=== PATIENT | male | born 1970 | race Caucasian/White ===

== ENCOUNTER 2018-06-03 09:07 | Inpatient (IN) | payer OTHER ==
[~2018-06-03] VITALS: Ht 182.9 cm; Wt 117.9 kg
--- NOTE | 2018-06-03 21:19 | NUR ---
Pre-Admission Note Pt is a 47 year old male seen at intake, A&Ox4. Pt appears anxiety and emotional, however Pt is cooperative and friendly and responds to questions appropriately. Upon assessment, pt states he is here for ETOH use and has been using benzodiazepines and opiates as well, although he reports he has not been abusing them. Pt also reports smoking cannabis. Vital signs taken, rules of the unit explained such as vital signs Q4H, wasting of controlled substances, kitchen access, and smoking patio privileges. Pt verbalized understanding. Will continue with admission process upon arrival on unit.
[2018-06-03 21:28] VITALS: BP 169/105
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
[2018-06-03] MEDS ORDERED: DICYCLOMINE HCL 20 MG TABLET PO PRN (21:45)
[2018-06-03] MEDS ORDERED: THIAMINE HCL 200 MG/2 ML VIAL IM ONE (21:45)
[2018-06-03] MEDS ORDERED: ONDANSETRON 4 MG/2 ML VIAL IM PRN (21:45)
[2018-06-03] MEDS ORDERED: MAGNESIUM HYDROXIDE 30 ML LIQUID UDC PO PRN (21:45)
[2018-06-03] MEDS ORDERED: LORAZEPAM 2 MG/1 ML VIAL IM PRN (21:45)
[2018-06-03] MEDS ORDERED: ONDANSETRON ODT 4 MG TAB.RAPDIS SL PRN (21:45)
[2018-06-03] MEDS ORDERED: MIRALAX 17 GM POWD.PACK PO PRN (21:45)
[2018-06-03] MEDS ORDERED: MAG HYDROX/AL HYDROX/SIMETH 30 ML LIQUID UDC PO PRN (21:45)
[2018-06-03] MEDS ORDERED: IBUPROFEN 400 MG TABLET PO PRN (21:45)
[2018-06-03] MEDS ORDERED: LORAZEPAM 1 MG TABLET PO PRN ×2 (21:45)
[2018-06-03] MEDS ORDERED: LISI40TA4 PO (21:59)
[2018-06-03] MEDS ORDERED: LOPE2TAB23 PO (21:59)
[2018-06-03] MEDS ORDERED: PRED20TA PO (21:59)
[2018-06-03] MEDS ORDERED: DULO60CA45 PO (21:59)
[2018-06-03] MEDS ORDERED: ROPI0.5T PO (21:59)
[2018-06-03] MEDS ORDERED: ARMO250T2 PO (21:59)
[2018-06-03] MEDS ORDERED: METF-495 PO (21:59)
[2018-06-03] MEDS ORDERED: FURO40TA5 PO (21:59)
[2018-06-03] MEDS ORDERED: CARV12.52 PO (21:59)
[2018-06-03] MEDS ORDERED: TRIA1CAP6 PO (21:59)
[2018-06-03] MEDS ORDERED: ARIP5TAB10 PO (21:59)
[2018-06-03] MEDS ORDERED: AMLO10TA2 PO (21:59)
[2018-06-03] MEDS ORDERED: OXCA300T4 PO (21:59)
[2018-06-03] MEDS ORDERED: ACET-2154 PO (21:59)
[2018-06-03 22:05] LABS: BASOPHILS # (AUTO) 0.1 K/uL (0.0-8.0); BASOPHILS % (AUTO) 0.9 % (0.0-2.0); EOSINOPHILS # (AUTO) 0.1 K/uL (0.0-0.7); EOSINOPHILS % (AUTO) 0.7 % (0.0-7.0); HEMATOCRIT 51.2 % (36.7-47.1); HEMOGLOBIN 17.2 g/dL (12.5-16.3); LYMPHOCYTES # (AUTO) 3.6 K/uL (20.0-40.0); LYMPHOCYTES % (AUTO) 28.1 % (20.5-51.5); MEAN CORPUSCULAR HEMOGLOBIN 30.6 uug (23.8-33.4); MEAN CORPUSCULAR HGB CONC 34 g/dL (32.5-36.3); MONOCYTES # (AUTO) 0.9 K/uL (2.0-10.0); MONOCYTES % (AUTO) 6.9 % (0.0-11.0); NEUTROPHILS # (AUTO) 8.2 K/uL (1.8-8.9); NEUTROPHILS % (AUTO) 63.4 % (38.5-71.5); PLATELET COUNT (AUTO) 225 K/uL (152-348); RED BLOOD CELL COUNT(AUTO) 5.62 MIL/uL (4.06-5.63); WHITE BLOOD COUNT (AUTO) 12.9 K/uL (3.6-10.2)
[2018-06-03] MEDS ORDERED: FLUT100B3 IH (22:18)
[2018-06-03] MEDS ORDERED: SILV50CR32 TP (22:18)
[2018-06-03 22:21] LABS: *AMPHETAMINE, URINE NEGATIVE (NEGATIVE); *BARBITURATE, URINE NEGATIVE (NEGATIVE); *CANNABINOID, URINE POSITIVE (NEGATIVE); *COCCAINE, URINE NEGATIVE (NEGATIVE); *OPIATE, URINE NEGATIVE (NEGATIVE); *PHENCYCLIDINE SCREEN,URINE NEGATIVE (NEGATIVE)
[2018-06-03 22:24] LABS: ETHANOL < 3 MG/DL (0-0)
[2018-06-03 22:29] LABS: ALANINE AMINOTRANSFERASE 22 U/L (16-63); ALKALINE PHOSPHATASE 70 U/L (50-136); AMYLASE 44 U/L (25-115); ASPARTATE AMINOTRANSFERASE 11 U/L (15-37); BILIRUBIN,TOTAL 0.7 mg/dL (0.2-1.0); CARBON DIOXIDE 28 mmol/L (21-32); CHLORIDE 102 mmol/L (98-107); CREATININE 1.3 mg/dL (0.6-1.3); LIPASE 211 U/L (73-393); MAGNESIUM 1.9 mg/dL (1.8-2.4); POTASSIUM 3.8 mmol/L (3.5-5.1); TOTAL PROTEIN, SERUM 7.1 g/dL (6.4-8.2); UREA NITROGEN, BLOOD 19 mg/dL (7-18)
[2018-06-03 22:31] LABS: GLUCOSE 308 mg/dL (74-106)
[2018-06-03] MEDS: CLONIDINE HCL 0.1 MG TABLET PO PRN (22:33)
--- NOTE | 2018-06-03 22:33 | NUR ---
PRN Clonidine Administration Pt presents with elevated BP 169/105. Clonidine 0.1mg PRN administered. Safety measures in place, will continue to monitor.
[2018-06-03 22:40] LABS: THYROID STIMULATING HORMONE 1.019 mIU/mL (0.358-3.740)
--- NOTE | 2018-06-03 22:50 | NUR ---
MD COMMUNICATION Pt's blood glucose is 308. Dr. Martínez made aware with order to give home medication of Metformin 1,000 mg and start routine Accu check.
--- NOTE | 2018-06-03 23:40 | NUR ---
PRN Clonidine Reassessment Elevated BP 1369/105 decreased to 142/97. Medication effective. Safety measures in place, will continue to monitor.
[2018-06-04] VITALS (7 sets, daily range): BP systolic 135–173; BP diastolic 76–99
[2018-06-04] MEDS ORDERED: METHOCARBAMOL 750 MG TABLET PO PRN (00:30)
[2018-06-04] MEDS ORDERED: ALBU8.5H8 IH (04:59)
[2018-06-04] MEDS ORDERED: CIME300T PO (04:59)
[2018-06-04] MEDS ORDERED: LIDO30CR TP (04:59)
--- NOTE | 2018-06-04 07:15 | NUR ---
End of Shift Pt is a 47 year old male admitted for ETOH withdrawal. Pt also reported using opiates, benzodiazepines and cannabis. Pt is placed on 5 day Ativan taper, to be started today. During shift, pt refused any Ativan offered to pt. Pt stated, I am okay for now, I dont want to take it too soon. CIWA 5 and COWS 5. Pt presented with s/s of anxiety, restlessness and elevated BP 169/106. Clonidine 0.1mg PRN administered, effective. Latest BP 137/87. Pt slept for 4 hours, intake of 200ml PO and voids x 2. Safety measures in place, endorsed onto day shift nurse.
--- NOTE | 2018-06-04 07:35 | NUR ---
BEGINNING OF SHIFT Patient endorsement report received from manager shift nurse, all pertinent information was discussed. Admitting Dx:etoh/BZO/Opiate withdrawal. Patient is scheduled to begin a 5 day Ativan taper this morning as ordered. was monitored closely during shift. Patient received PRN: Clonidine during shift due to elevated blood pressure, medication was effective as per manager shift. Patients blood sugar to be monitored closely during shift, per blood work patient with last BS: 308. Patient slept for 4 hours. Patient currently received awake, alert and oriented x4. Educated patient regarding plan of care for the day and medication regimen, will also educate regarding all discharge instructions. Safety measures are in place. call light with in reach, will continue to monitor. Addendum: 06/05/18 at 0803 by PARIS BALDERAS LVN strike out from note above " will also educate regarding all discharge instructions"
[2018-06-04] MEDS ORDERED: 5 DAY TAPER OF LORAZEPAM -SERENITY PROTOCOL PO PRN (07:45)
[2018-06-04] MEDS: BLOOD SUGAR DIAGNOSTIC 1 EACH STRIP VI SCH ×4 (08:26→20:57)
[2018-06-04] MEDS: THIAMINE HCL 100 MG TABLET PO SCH (08:27)
[2018-06-04] MEDS: FOLIC ACID 1 MG TABLET PO SCH (08:27)
[2018-06-04] MEDS: MULTIVITAMINS,THERAPEUTIC TABLET PO SCH (08:27)
[2018-06-04] MEDS: LORAZEPAM 1 MG TABLET PO SCH ×4 (08:28→20:46)
[2018-06-04] MEDS ORDERED: TUBERCULIN,PURIF.PROT.DERIV. 5 TU/0.1 ML TEST ID ONE (09:00)
--- NOTE | 2018-06-04 09:00 | NUR ---
CIWA/COW ASSESSMENT Patient awake and in bed, Patient noted with depressed affect and anxious mood, presented with the following s/sx of withdrawal: diaphoresis, increase anxiety, agitation, elevated HR, fidgety, restless, generalized discomfort, increase emotional amplitude and emotional volatility, patient with CIWA score of: 12, scheduled medications administered as ordered, will continue to monitor closely.
[2018-06-04] MEDS: METFORMIN HCL 500 MG TABLET PO SCH ×2 (09:14→17:10)
[2018-06-04] MEDS ORDERED: PROAIR IH SCH (11:45)
[2018-06-04] MEDS ORDERED: ACETAMINOPHEN 325 MG TABLET PO PRN (11:45)
[2018-06-04] MEDS: OXCARBAZEPINE 300 MG TABLET PO SCH ×2 (12:13→16:35)
[2018-06-04] MEDS: ARIPIPRAZOLE 5 MG TABLET PO SCH (12:14)
[2018-06-04] MEDS: CLONIDINE HCL 0.1 MG TABLET PO PRN (12:14)
[2018-06-04] MEDS: DULOXETINE 60 MG CAPSULE.DR PO SCH (12:14)
--- NOTE | 2018-06-04 12:14 | NUR ---
PRN CLONIDINE BP: 173/95 HR: 88, administered Clonidine 0.1mg PO as ordered for elevated blood pressure will monitor effectiveness.
[2018-06-04] MEDS: CARVEDILOL 12.5 MG TABLET PO SCH ×2 (12:26→16:36)
[2018-06-04] MEDS: AMLODIPINE 10 MG TABLET PO SCH (12:26)
--- NOTE | 2018-06-04 13:00 | NUR ---
COW/CIWA ASSESSMENT Patient presented with: diaphoresis, increase anxiety, agitation, elevated HR, fidgety, restless, generalized discomfort, chills, myalgia, arthriaglias, moist eyes, increase emotional amplitude and emotional volatility, patient with last CIWA score of: 12, and COW score of: 6
--- NOTE | 2018-06-04 13:14 | NUR ---
CLONIDINE REASSESSMENT Medication effective, decrease in BP: 135/76 HR: 88.
[2018-06-04] MEDS: TRELEGY ELLIPTA INH SCH (13:41)
[2018-06-04] MEDS: TRIAMTERENE HCTZ PO SCH (13:41)
[2018-06-04] MEDS: LISINOPRIL 40 MG PO SCH (13:42)
--- NOTE | 2018-06-04 16:25 | NUR ---
COW/CIWA ASSESSMENT Patient presented with: diaphoresis, increase anxiety, agitation, fidgety, restless, generalized discomfort, chills, myalgia, arthralgias, moist eyes, increase emotional amplitude and emotional volatility, patient with last CIWA score of: 12, and COW score of: 7
[2018-06-04] MEDS: LOPERAMIDE HCL 2 MG CAPSULE PO PRN (16:35)
--- NOTE | 2018-06-04 16:35 | NUR ---
PRN IMODIUM Patient reported one episode of diarrhea, Administered PRN: Imodium as ordered, encouraged patient to increase PO fluid intake as tolerated, will continue to monitor.
[2018-06-04] MEDS: ropiniROLE 0.5 MG TABLET PO SCH (17:11)
--- NOTE | 2018-06-04 17:35 | NUR ---
IMODIUM REASSESSMENT Medication effective, no further episodes of diarrhea have been noted, will continue to monitor.
[2018-06-04] MEDS ORDERED: METFORMIN HCL 500 MG TABLET PO SCH (18:00)
--- NOTE | 2018-06-04 19:04 | NUR ---
START OF SHIFT NOTE: This is report on patient, an 47 year old male, admitted on 06/03/2018 for Benzodiazepines, Alcohol, and Opioid withdrawal, continues ordered 5 day Subutex (today is day #2), and 5 day Valium tapers (today is day #2), which tolerated well. The patient remains compliant with treatment plan, medications, and diet regime. The patient is alert and oriented x4, with stable gait, soft clear speech. The patient reports NKA, is on Full Code, Diabetic Diet, is on Seizures and Fall Precautions. The patient reports Past Medical History: Anxiety, Depression, Narcolepsy, HTN, DM Type 2, COPD, CHF, 5150 - ECT Therapy, Back surgery in 1999, Necrotizing fasciitis in 2012. The patient denies seizures history. Throughout the day shift, patient presented with moderate withdrawal symptoms such as anxiety, agitation, depression, obv. irritability, nervousness, nausea, vomiting, diarrhea, nasal congestion, body aches, myalgia, sweating, restlessness, fatigue, and yawning. Last COWS=7, CIWA=12 at 1622. PRN Imodium administrated for diarrhea at 1635, PRN Clonidine 0.1 mg PO administrated for high BP at 1214, and were effective by day shift nurse report. Encouraged to attend group activities. Encouraged to intake fluids as tolerated. All needs met. Safety measures: Call light within reach, bed locked in lowest position, padded bed rails up x2. Endorsed by outgoing day shift nurse. Will continue to monitor closely.
--- NOTE | 2018-06-04 19:04 | NUR ---
END OF SHIFT Patient alert and oriented x4, continues under close observation, patient with admitting Dx: etoh/bzo/opiate withdrawal. Patient began a 5 day Ativan taper during shift, day 1 of taper began this morning. Monitored s/sx of withdrawal closely. During shift patient presented with the following s/sx of withdrawal: diaphoresis, increase anxiety, agitation, elevated HR, fidgety, restless, generalized discomfort, chills, myalgia, arthralgias, moist eyes, diarrhea, increase emotional amplitude and emotional volatility, patient with last CIWA score of: 12, and COW score of: 7. Patient easily agitated with angry outburst at times, requires frequent calming reassurance. Patient encouraged to express self, provided with non pharmacological interventions as needed. Blood sugar monitored closely during shift. Patient with last BS: 236, Continues on metformin as ordered. Educated regarding following diet restrictions with good verbal understanding. Received PPD to left F/A as ordered. Patient received PRN: Imodium during shift due to episode of diarrhea, medication effective. patient also received clonidine as ordered for elevated blood pressure, medication effective. Patient noted with depressed affect and anxious mood. Patient encouraged diversional activities to alleviate anxiety. Patient has a flat affect at times, noted preoccupied, encouraged to attend group therapies/sessions to learn new coping skills to prevent relapse. Denies SI/HI. Encouraged to socialize with others. Patient with inability to perform ADLs without prompting, Patient encouraged maintenance of personal space and self grooming. Patient endorsed to mine shifter nurse, all pertinent information was discussed.
--- NOTE | 2018-06-04 20:00 | NUR ---
COWS/CIWA ASSESSMENT COWS=9, CIWA=9 at 2000. The patient appears sad, worried, with depressive mood and anxious affect. Patient c/o anxiety, agitation, depression, Irritability, nervousness, nasal congestion, sweating, restlessness, and fatigue. Encouraged to intake fluids as tolerated. All needs met. Safety measures: Call light within reach, bed locked in lowest position, padded bed rails up x2. Will continue to monitor closely.
[2018-06-05] VITALS: BP 144/70
--- NOTE | 2018-06-05 | NUR ---
COWS/CIWA ASSESSMENT COWS=9, CIWA=8 at 0000. Patient presented with anxiety, agitation, depression, Irritability, nervousness,sweating, restlessness, and fatigue. Encouraged to intake fluids as tolerated. All needs met. Safety measures: Call light within reach, bed locked in lowest position, padded bed rails up x2. Will continue to monitor closely.
[2018-06-05 04:00] VITALS: BP 144/87
--- NOTE | 2018-06-05 04:00 | NUR ---
COWS/CIWA ASSESSMENT COWS=12, CIWA=10 at 2000. The patient appears sad, worried, with irritable mood and anxious affect. Patient c/o anxiety, agitation, depression, irritability, nervousness, body aches, abdominal cramps, sweating, restlessness, and fatigue. Encouraged to intake fluids as tolerated. All needs met. Safety measures: Call light within reach, bed locked in lowest position, padded bed rails up x2. Will continue to monitor closely.
[2018-06-05 04:10] LABS: HEPATITIS B SURFACE AG Negative (Negative)
--- NOTE | 2018-06-05 05:00 | NUR ---
PRN ADMINISTRATION PRN Ventolin Inh administrated at 0500 as ordered. The patient tolerated well. Safe and calm environment provided. All needs met. Safety measures: Call light within reach, bed locked in lowest position, padded bed rails up x2. Will continue to monitor closely.
[2018-06-05] MEDS: CLONIDINE HCL 0.1 MG TABLET PO PRN (05:02)
--- NOTE | 2018-06-05 05:03 | NUR ---
PRN CLONIDINE 0.1 MG PO ADMINISTRATION Patient c/o increased anxiety. PRN Clonidine 0.1 mg PO administrated at 0503 as ordered. The patient tolerated well. Safe and calm environment provided. All needs met. Safety measures: Call light within reach, bed locked in lowest position, padded bed rails up x2. Will continue to monitor closely.
[2018-06-05] MEDS: LOPERAMIDE HCL 2 MG CAPSULE PO PRN ×3 (05:45→20:33)
--- NOTE | 2018-06-05 05:45 | NUR ---
PRN ADMINISTRATION PRN IMODIUM 2 MG PO ADMINISTRATED FOR DIARRHEA X1. PATIENT TOLERATED WELL ENCOURAGED TO FLUID INTAKE TOLERATED. WILL CONTINUE TO MONITOR CLOSELY.
--- NOTE | 2018-06-05 05:45 | NUR ---
PRN IMODIUM 2 MG PO ADMINISTRATION Patient c/o diarrhea x1. PRN Imodium 2 mg PO administrated at 0545 as ordered. The patient tolerated well. Safe and calm environment provided. Encouraged to intake fluids as tolerated. All needs met. Safety measures: Call light within reach, bed locked in lowest position, padded bed rails up x2. Will continue to monitor closely.
--- NOTE | 2018-06-05 06:00 | NUR ---
PRN RE-ASSESSMENT Respirations are even and unlabored. Patient denies SOB and chest pain. PRN Ventolin Inh administrated at 0500 was effective. Safe and calm environment provided. All needs met. Safety measures: Call light within reach, bed locked in lowest position, padded bed rails up x2. Will continue to monitor closely.
--- NOTE | 2018-06-05 06:03 | NUR ---
PRN CLONIDINE PO RE-ASSESSMENT PRN Vistaril 50 mg PO administrated at 0503 was effective. Patient reports, "my anxiety decreased now". Safe and calm environment provided. All needs met. Safety measures: Call light within reach, bed locked in lowest position, padded bed rails up x2. Will continue to monitor closely.
--- NOTE | 2018-06-05 06:45 | NUR ---
PRN RE-ASSESSMENT PRN IMODIUM 2 MG PO ADMINISTRATED AT 0545 FOR DIARRHEA X1 WAS EFFECTIVE. NO MORE EPISODES OF DIARRHEA NOTED.
[2018-06-05] MEDS: BLOOD SUGAR DIAGNOSTIC 1 EACH STRIP VI SCH ×4 (07:39→20:29)
--- NOTE | 2018-06-05 07:39 | NUR ---
END OF SHIFT NOTE: Endorsed patient, 47 year old male, admitted for Benzodiazepines, Alcohol, and Opioid withdrawal, continues ordered 5 day Subutex (today is day #3), and 5 day Valium tapers (today is day #3), which tolerated well. The patient is alert and oriented x4, with stable gait, soft clear speech. The patient denies seizures history. Throughout the day shift, patient presented with moderate withdrawal symptoms such as anxiety, agitation, depression, obv. irritability, nervousness, diarrhea, nasal congestion, body aches, myalgia, sweating, restlessness, fatigue, and yawning. COWS=9, CIWA=9 at 2000. Last COWS=12 CIWA=10 at 0400. PRN Imodium administrated for diarrhea at 0545, PRN Clonidine 0.1 mg PO administrated for anxiety at 0503, and were effective. Encouraged to attend group activities. Encouraged to intake fluids as tolerated The patient remains compliant with treatment plan, medications, and diet regime. Patient slept for 6 hours, intake 400ml, output: voided x2, stool x1. All needs met. Safety measures: Call light within reach, bed locked in lowest position, padded bed rails up x2. Endorsed to incoming day shift nurse.
--- NOTE | 2018-06-05 08:04 | NUR ---
BEGINNING OF SHIFT Patient received awake, alert and oriented x4. Educated patient regarding plan of care for the day and medication regimen,Patient endorsement report received from mechanism inspector nurse, all pertinent information was discussed. Continues with ongoing 5 day Ativan taper as ordered, scheduled to begin day 2 of taper. Patient with last COW score of: 10, and CIWA score of: 12. Patient received PRN: Imodium, Clonidine, and Ventolin as ordered, medications were effective as per mechanism inspector. Patients blood sugar to be monitored closely during shift, BS this morning at 216. Patient slept for 6 hours. Safety measures are in place. call light with in reach, will continue to monitor.
[2018-06-05 08:17] VITALS: BP 146/92
[2018-06-05] MEDS: MULTIVITAMINS,THERAPEUTIC TABLET PO SCH (08:43)
[2018-06-05] MEDS: ARIPIPRAZOLE 5 MG TABLET PO SCH (08:43)
[2018-06-05] MEDS: AMLODIPINE 10 MG TABLET PO SCH (08:44)
[2018-06-05] MEDS: OXCARBAZEPINE 300 MG TABLET PO SCH ×2 (08:44→17:23)
[2018-06-05] MEDS: TRIAMTERENE HCTZ PO SCH (08:44)
[2018-06-05] MEDS: DULOXETINE 60 MG CAPSULE.DR PO SCH (08:44)
[2018-06-05] MEDS: THIAMINE HCL 100 MG TABLET PO SCH (08:44)
[2018-06-05] MEDS: CARVEDILOL 12.5 MG TABLET PO SCH ×2 (08:44→17:23)
[2018-06-05] MEDS: FOLIC ACID 1 MG TABLET PO SCH (08:44)
[2018-06-05] MEDS: LORAZEPAM 1 MG TABLET PO SCH ×3 (08:44→20:23)
[2018-06-05] MEDS: LISINOPRIL 40 MG PO SCH (08:45)
[2018-06-05] MEDS: TRELEGY ELLIPTA INH SCH (08:45)
[2018-06-05] MEDS: METFORMIN HCL 500 MG TABLET PO SCH ×2 (08:49→17:23)
--- NOTE | 2018-06-05 09:00 | NUR ---
CIWA/COW ASSESSMENT Patient awake and in room, Patient noted with depressed affect and anxious mood, patient easily agitated. Provided with calming reassurance as needed. Patient noted exhibiting the following s/sx of withdrawal: difficulty sitting still, fidgety, restless, bone and joint aches, diarrhea, fine tremors, irritable, increase anxiety, agitation, generalized discomfort, increase emotional amplitude and emotional volatility, patient with CIWA score of: 11, and cow score of: 10, Continues with ongoing 5 day ativan taper as ordered, will continue to monitor closely.
--- NOTE | 2018-06-05 11:05 | NUR ---
PRN IMODIUM Patient reported one episode of diarrhea, Administered PRN: Imodium as ordered, encouraged patient to increase PO fluid intake as tolerated, will continue to monitor.
--- NOTE | 2018-06-05 12:05 | NUR ---
IMODIUM REASSESSMENT Medication effective, no further episodes of diarrhea have been noted, will continue to monitor.
--- NOTE | 2018-06-05 13:00 | NUR ---
CIWA/COW ASSESSMENT Continues to exhibit the following s/sx of withdrawal: difficulty sitting still, fidgety, restless, bone and joint aches, diarrhea, fine tremors, irritable, increase anxiety, agitation, generalized discomfort, increase emotional amplitude and emotional volatility, patient with CIWA score of: 11, and cow score of: 10, will continue to monitor closely.
--- NOTE | 2018-06-05 13:00 | NUR ---
MD COMMUNICATION Per , Dr. Saucedo, Imodium frequency changed to Q2HPRN for diarrhea, will monitor closely for further episodes of diarrhea. Encouraged patient to increase PO fluid intake as tolerated. Will continue to monitor.
[2018-06-05 13:24] VITALS: BP 134/76
--- NOTE | 2018-06-05 15:25 | NUR ---
Therapist prompted client to attend group therapy today.
[2018-06-05 16:54] VITALS: BP 132/84
--- NOTE | 2018-06-05 17:08 | NUR ---
CIWA/COW ASSESSMENT Present with the following s/sx: difficulty sitting still, fidgety, restless, bone and joint aches, diarrhea, fine tremors, irritable, increase anxiety, agitation, generalized discomfort, increase emotional amplitude and emotional volatility, patient with CIWA score of: 11, and cow score of: 10, will continue to monitor closely. continues on Ativan taper as ordered.
[2018-06-05] MEDS: ropiniROLE 0.5 MG TABLET PO SCH (17:23)
--- NOTE | 2018-06-05 18:36 | NUR ---
END OF SHIFT Admitting Dx: etoh/bzo/opiate withdrawal. Continues with ongoing 5 day Ativan taper as ordered, patient currently on day 2 of taper. Patient easily agitated with angry outburst at times, requires frequent calming reassurance. Patient noted with depressed affect and anxious mood. Patient encouraged diversional activities to alleviate anxiety. Encouraged to attend group therapies/sessions to learn new coping skills to prevent relapse. Denies SI/HI. Encouraged to socialize with others. Patient disheveled, unkempt, and odorous, Patient with inability to perform ADLs without prompting, Patient encouraged maintenance of personal space and self grooming. Continues under close observation, Patient noted exhibiting the following s/sx of withdrawal: difficulty sitting still, fidgety, restless, bone and joint aches, diarrhea, fine tremors, irritable, increase anxiety, agitation, generalized discomfort, increase emotional amplitude and emotional volatility, patient with CIWA score of: 11, and cow score of: 10. Patient received PRN Imodium as ordered due to episode of diarrhea, medication effective. Blood sugar monitored closely during shift. Patient with last BS: 239. Continues on metformin as ordered. Educated regarding following diet restrictions with good verbal understanding. Patient endorsed to night shift manager nurse, all pertinent information was discussed.
--- NOTE | 2018-06-05 18:50 | NUR ---
START OF SHIFT NOTE: Endorsed patient, an 47 year old male, continues 5 day Subutex (today is day #3), and 5 day Valium tapers (today is day #3) ordered for Benzodiazepines, Alcohol, and Opioid withdrawal, tolerated well. Upon endorsement, patient is alert and oriented x4, with stable gait, soft clear speech. Mood anxious, irritable affect. The most recent COWS=10, CIWA=11 at 1655. During the day shift, patient experienced following withdrawal symptoms such as anxiety, agitation, depression, irritability, nervousness, diarrhea, nasal congestion, body aches, myalgia, sweating, restlessness, fatigue, and yawning. PRN Imodium administrated for diarrhea at 1205, and was effective per day shift nurse report. The patient remains compliant with treatment plan, medications, and diet regime. Encouraged to attend group activities. Encouraged to intake fluids as tolerated. All needs met. Safety measures: Call light within reach, bed locked in lowest position, padded bed rails up x2. Endorsed by outgoing day shift nurse. Will continue to monitor closely.
[2018-06-05 20:00] VITALS: BP 106/58
--- NOTE | 2018-06-05 20:00 | NUR ---
COWS/CIWA ASSESSMENT COWS=12, CIWA=12 at 2000. The patient appears sad, worried, with anxious mood and labile affect. Patient experienced anxiety, agitation, Irritability, nervousness, sweating, tremors, stomach cramps, restlessness, fatigue, and yawning. Ativan PO will be administrated as ordered. Encouraged to intake fluids as tolerated. All needs met. Safety measures: Call light within reach, bed locked in lowest position, padded bed rails up x2. Will continue to monitor closely.
--- NOTE | 2018-06-05 20:33 | NUR ---
PRN IMODIUM 2 MG PO ADMINISTRATION Patient c/o diarrhea x1. PRN Imodium 2 mg PO administrated at 2032 as ordered. The patient tolerated well. Safe and calm environment provided. Encouraged to intake fluids as tolerated. All needs met. Safety measures: Call light within reach, bed locked in lowest position, padded bed rails up x2. Will continue to monitor closely.
--- NOTE | 2018-06-05 21:33 | NUR ---
PRN RE-ASSESSMENT PRN Imodium 2 mg PO administrated at 2032 for diarrhea was effective. No more episodes of diarrhea noted. Safe and calm environment provided. Encouraged to intake fluids as tolerated. All needs met. Safety measures: Call light within reach, bed locked in lowest position, padded bed rails up x2. Will continue to monitor closely.
[2018-06-05] MEDS: diphenhydrAMINE 50 MG CAPSULE PO PRN (22:31)
--- NOTE | 2018-06-05 22:31 | NUR ---
PRN BENADRYL 50 MG PO ADMINISTRATION The patient c/o insomnia. PRN Benadryl 50 mg PO administrated for insomnia at 2231,as ordered. The patient tolerated well. Encouraged to intake fluids as tolerated. Safe and calm environment provided. Encouraged to intake fluids as tolerated. All needs met. Safety measures: Call light within reach, bed locked in lowest position, padded bed rails up x2. Will continue to monitor closely.
--- NOTE | 2018-06-05 23:30 | NUR ---
PRN BENADRYL PO RE-ASSESSMENT The patient sleeping. Respirations are even and unlabored. RR:15. PRN Benadryl 50 mg PO administrated for insomnia at 2231, as ordered, was effective. All needs met. Safety measures: Call light within reach, bed locked in lowest position, padded bed rails up x2. Endorsed by outgoing day shift nurse. Will continue to monitor closely.
[2018-06-06] VITALS: BP 147/74
[2018-06-06 04:00] VITALS: BP 109/79
--- NOTE | 2018-06-06 04:00 | NUR ---
COWS/CIWA ASSESSMENT COWS=11, CIWA=12 at 0400. Patient presented with following withdrawal symptoms such as anxiety, agitation, irritability, nervousness, sweating, tremors, flashed face, restlessness, fatigue, and yawning. Safe and calm environment provided. Encouraged to intake fluids as tolerated. All needs met. Safety measures: Call light within reach, bed locked in lowest position, padded bed rails up x2. Will continue to monitor closely.
--- NOTE | 2018-06-06 07:05 | NUR ---
Start of Shift Note Pt. is a 47 y/o male admitted for the medically managed withdrawal from ETOH (beer/whiskey) and Benzodiazepines(Xanax). Pt. was also using Percocet for back pain currently with ETOH and Benzodiazepines. Pt. was placed on a 5 day Ativan taper to manage his withdrawal symptoms. Endorse from previous shift pt. presented with anxiety, irritability, depression, agitation, congestion, diarrhea, diaphoresis, and fatigue. Last CIWA of 11 and COW's of 10. Pt. was given PRN imodium given for withdrawal symptoms. Received pt. in room. Pt. standing up in room getting ready to out for a smoke. Pt. stated " I'm a little anxious, but otherwise okay." Pt. presents with dark rings around his eyes, and gross tremors. Pt. educated on treatment plan and medication regiment. Pt. verbalize understanding. Safety measures in place. Will continue to monitor pt.'s behavior for safety.
--- NOTE | 2018-06-06 07:14 | NUR ---
END OF SHIFT NOTE: Presented patient, an 47 year old male admitted for Benzodiazepines, Alcohol, and Opioid withdrawal. The patient continues ordered 5 day Subutex (today is day #4), and 5 day Valium tapers (today is day #4) which tolerated well. He is alert and oriented x4, with stable gait, soft clear speech, anxious mood, and labile affect. Initial COWS=12, CIWA=12 at 2000, COWS=11, CIWA=11 at 0000. Last COWS=11, CIWA=12 at 0400. Throughout the mini shifter patient c/o anxiety, agitation, depression, irritability, nervousness, diarrhea, stomach cramps, nasal congestion, flashed face, body aches, myalgia, sweating, restlessness, fine tremors, fatigue, and yawning. PRN Imodium administrated for diarrhea at 2032, PRN Benadryl 50 mg PO administrated for insomnia at 2230, and were effective. RK=[id number] at 2099. The patient remains compliant with treatment plan, medications, and diet regime. Encouraged to attend group activities. Encouraged to intake fluids as tolerated. The patient remains compliant with treatment plan, medications, and diet regime. Patient slept 5 hours, Intake 1,000 ml, void x 2. All needs met. Safety measures: Call light within reach, bed locked in lowest position, padded bed rails up x2. Endorsed to day shift nurse.
[2018-06-06 08:00] VITALS: BP 145/94
--- NOTE | 2018-06-06 08:00 | NUR ---
COW's and CIWA Assessment COW's 8 and CIWA 13. Pt. laying in bed and presents with agitation, anxiety, diaphoresis, gross tremors, and nasal congestion. Will administer medication regiment as ordered. Will continue to monitor pt.'s behavior for safety.
[2018-06-06] MEDS: BLOOD SUGAR DIAGNOSTIC 1 EACH STRIP VI SCH ×4 (08:12→21:13)
[2018-06-06] MEDS: ARIPIPRAZOLE 5 MG TABLET PO SCH (08:13)
[2018-06-06] MEDS: AMLODIPINE 10 MG TABLET PO SCH (08:13)
[2018-06-06] MEDS: METFORMIN HCL 500 MG TABLET PO SCH ×2 (08:13→17:01)
[2018-06-06] MEDS: TRIAMTERENE HCTZ PO SCH (08:13)
[2018-06-06] MEDS: LISINOPRIL 40 MG PO SCH (08:13)
[2018-06-06] MEDS: MULTIVITAMINS,THERAPEUTIC TABLET PO SCH (08:14)
[2018-06-06] MEDS: FOLIC ACID 1 MG TABLET PO SCH (08:14)
[2018-06-06] MEDS: THIAMINE HCL 100 MG TABLET PO SCH (08:14)
[2018-06-06] MEDS: LORAZEPAM 1 MG TABLET PO SCH ×4 (08:14→21:12)
[2018-06-06] MEDS: DULOXETINE 60 MG CAPSULE.DR PO SCH (08:14)
[2018-06-06] MEDS: CARVEDILOL 12.5 MG TABLET PO SCH ×2 (08:14→17:02)
[2018-06-06] MEDS: OXCARBAZEPINE 300 MG TABLET PO SCH ×2 (08:14→17:02)
[2018-06-06] MEDS: TRELEGY ELLIPTA INH SCH (08:17)
[2018-06-06 12:00] VITALS: BP 146/86
--- NOTE | 2018-06-06 12:00 | NUR ---
COW's and CIWA Assessment COW's 8 and CIWA 13. Pt. laying in bed and presents with agitation, anxiety, diaphoresis, gross tremors, and nasal congestion. Pt. compliant with medication regiment. Will continue to monitor pt.'s behavior for safety.
[2018-06-06] MEDS: LOPERAMIDE HCL 2 MG CAPSULE PO PRN (13:26)
--- NOTE | 2018-06-06 13:26 | NUR ---
PRN Medication. Pt. in room and reports 3 episodes of diarrhea. PRN Imodium given at this time. Will continue to monitor pt.'s behavior for medication effectiveness and safety.
--- NOTE | 2018-06-06 14:00 | NUR ---
PRN Re-Assessment Pt. states "I feel better, no more diarrhea so far." Medication effective. Will continue to monitor pt.'s behavior for safety .
[2018-06-06 16:00] VITALS: BP 143/93
--- NOTE | 2018-06-06 16:00 | NUR ---
COW's and CIWA Assessment COW's 10 and CIWA 13. Pt. laying in bed and presents with agitation, anxiety, diaphoresis, gross tremors, diarrhea and nasal congestion. Pt. compliant with treatment plan and medication regiment. Will continue to monitor pt.'s behavior for safety.
[2018-06-06] MEDS: glipiZIDE 5 MG TABLET PO SCH (17:01)
[2018-06-06] MEDS: ropiniROLE 0.5 MG TABLET PO SCH (17:02)
--- NOTE | 2018-06-06 19:14 | NUR ---
End of Shift Note Pt. is a 47 y/o male admitted for the medically managed withdrawal from ETOH (beer/whiskey) and Benzodiazepines(Xanax). Pt. was also using Percocet for back pain currently with ETOH and Benzodiazepines. Pt. was placed on a 5 day Ativan taper to manage his withdrawal symptoms. Pt. presented throughout shift with anxiety, irritability, depression, agitation, congestion, diarrhea, diaphoresis, and fatigue. Last CIWA of 10 and COW's of 13. Pt. was given PRN imodium given for withdrawal symptoms. Pt. compliant with medication regiment and treatment plan. Safety measures in place. Will endorse pt.'s care to oncoming shift.
--- NOTE | 2018-06-06 19:20 | NUR ---
START OF SHIFT Patient is a 48-year-old male admitted on 06/03/18 for ETOH withdrawal, with concurrent daily use of Percocet 10/325mg daily for the past 10 months. Patient is currently on a 5-day Ativan taper, tolerating well; today is day 3 of the taper. Patients last CIWA was 13 per endorsement. Patient received PRN Imodium today for complaints of loose stool. PRN was noted to be effective. Upon assessment, patient is alert and oriented x4, observed in his room watching television, not participating in group. Patient appears withdrawn and isolative with a pleasant demeanor. Per charge nurse, patient refuses insulin and has not been ordered a sliding scale although routine Accu-checks are ordered. Patient is on fall and seizure precautions, denies seizure history. Safety measures in place, side rails up x2, bed locked in low position, call light within reach. Will continue to monitor.
[2018-06-06 20:00] VITALS: BP 141/92
--- NOTE | 2018-06-06 20:00 | NUR ---
CIWA 13 Patient reports anxiety and is moderately agitated. Patient complains of moderate tingling in his right hand, stating that it is constant. Current CIWA is 13. Will continue to monitor and administer medications as ordered.
[2018-06-06] MEDS: diphenhydrAMINE 50 MG CAPSULE PO PRN (21:12)
--- NOTE | 2018-06-06 21:12 | NUR ---
PRN BENADRYL, BS 186 mg/dL Patient reports difficulty sleeping and requested sleep aid. PRN Benadryl 50mg given PO. Accu-check at 2111 results: 186 mg/dL. Safety measures in place, side rails up x2, bed locked in low position, call light within reach. Will monitor for effectiveness.
--- NOTE | 2018-06-06 22:12 | NUR ---
PRN BENADRYL REASSESSMENT Patient observed sleeping in bed, eyes closed, breathing unlabored and even. PRN Benadryl noted to be effective. Safety measures in place, side rails up x2, bed locked in low position, call light within reach. Will continue to monitor.
[2018-06-06] MEDS ORDERED: TRAZODONE 50 MG TABLET PO ONE (23:15)
--- NOTE | 2018-06-06 23:38 | NUR ---
ONE-TIME TRAZODONE 50mg Patient woke up about half an hour ago and stated that he was having difficulty falling asleep despite PRN Benadryl. Patient states, "I've had trouble sleeping since 1999. Tonight I just feel like a snake shedding his skin." One-time Trazodone 50mg given PO. Safety measures in place, side rails up x2, bed locked in low position, call light within reach. Will monitor for effectiveness.
[2018-06-07] VITALS (7 sets, daily range): BP systolic 103–160; BP diastolic 59–97
--- NOTE | 2018-06-07 | NUR ---
CIWA DEFERRED CIWA deferred at this time due to patient sleeping; to be assessed and scored while patient is awake. Respirations even and unlabored, 20/min, BP 103/59, HR 72. Safety measures in place, side rails up x2, bed locked in low position, call light within reach. Will continue to monitor.
--- NOTE | 2018-06-07 00:38 | NUR ---
ONE-TIME TRAZODONE 50mg REASSESSMENT Patient was sleeping prior to reassessment, for about half an hour, but is now awake stating, "nothing is working, I still can't sleep." Trazodone seems to ineffective at this time. Safety measures in place, side rails up x2, bed locked in low position, call light within reach. Will continue to monitor.
--- NOTE | 2018-06-07 00:45 | NUR ---
CIWA 13 Patient woke up and stated that he could not fall back asleep and decided to take a shower. Patient continues to express feeling anxious and feeling restless. Current CIWA is 13. SN unlocked shower for patient. Will continue to monitor.
--- NOTE | 2018-06-07 04:00 | NUR ---
CIWA DEFERRED CIWA deferred at this time due to patient sleeping; to be assessed while patient is awake. Patient's respirations are even and unlabored, BP 106/76, HR is 67. Safety measures in place, side rails up x2, bed locked in low position, call light within reach. Will continue to monitor.
--- NOTE | 2018-06-07 06:30 | NUR ---
CIWA 13 Patient is awake, requesting coffee and permission to go down to smoke. Patient continues to report moderate levels of anxiety and restlessness. Current CIWA is 13. Safety measures in place, call light within reach. Will continue to monitor.
[2018-06-07] MEDS: LOPERAMIDE HCL 2 MG CAPSULE PO PRN (07:12)
--- NOTE | 2018-06-07 07:12 | NUR ---
PRN IMODIUM Patient reports one episode of loose stool. PRN Imodium 4mg given PO. Safety measures in place, call light within reach. Will endorse to day shift for reassessment in one hour.
--- NOTE | 2018-06-07 07:25 | NUR ---
END OF SHIFT Patient is a 48-year-old male admitted on 06/03/18 for ETOH withdrawal. Patient is currently on a 5-day Ativan taper, tolerating well; today will be day 4 of the taper. Patients last CIWA was 13 this morning at 0630. Patient received PRN Benadryl which was noted to be ineffective. Patient also received a One-Time Trazodone 50mg which was not effective at time of reassessment, however, patient was able to sleep for 6 hours. PRN Imodium was given at 0712, a few minutes after patient reported one episode of loose stool; to be reassessed by day shift. Total intake of 1,350mL, void x3, stool x1. Patient is on fall and seizure precautions, denies seizure history. Safety measures in place, side rails up x2, bed locked in low position, call light within reach. Will endorse to day shift.
[2018-06-07] MEDS: BLOOD SUGAR DIAGNOSTIC 1 EACH STRIP VI SCH ×4 (07:35→20:21)
[2018-06-07] MEDS: ACETAMINOPHEN 325 MG TABLET PO PRN (07:35)
--- NOTE | 2018-06-07 07:36 | NUR ---
START OF SHIFT & PRN Tylenol 650mg, Motrin 600mg. Endorse rcvd from ongoing nurse, client in the room, he is a/o x 4, client presents with depressed mood, flat affect, flushed face skin, clammy skin, and difficulty concentrating. Client reports nausea, diarrhea, stomach cramps, anxiety, agitation, fatigue, and lower back pain 5/10, PRN Tylenol 650mg PO and Motrin 600mg PO administered. PRN Benadryl 50mg PO and Trazodone 50mg PO for inability to sleep, client slept 6 hrs. Seizure precautions in place. Encourage client to attend group therapy to learn skills to maintain sober. Call light within reach.
[2018-06-07] MEDS: glipiZIDE 5 MG TABLET PO SCH ×2 (07:44→16:36)
--- NOTE | 2018-06-07 08:12 | NUR ---
Reassess PRN Imodium 4mg, client reports no episodes of loose stool.
--- NOTE | 2018-06-07 08:27 | NUR ---
Zero induration noted on L forearm PPD site.
[2018-06-07] MEDS: TRELEGY ELLIPTA INH SCH (08:36)
[2018-06-07] MEDS: TRIAMTERENE HCTZ PO SCH (08:36)
[2018-06-07] MEDS: METFORMIN HCL 500 MG TABLET PO SCH ×2 (08:36→18:29)
[2018-06-07] MEDS: THIAMINE HCL 100 MG TABLET PO SCH (08:37)
[2018-06-07] MEDS: OXCARBAZEPINE 300 MG TABLET PO SCH ×2 (08:37→16:36)
[2018-06-07] MEDS: LISINOPRIL 40 MG PO SCH (08:37)
[2018-06-07] MEDS: AMLODIPINE 10 MG TABLET PO SCH (08:37)
[2018-06-07] MEDS: CARVEDILOL 12.5 MG TABLET PO SCH ×2 (08:37→16:36)
[2018-06-07] MEDS: LORAZEPAM 1 MG TABLET PO SCH ×3 (08:37→20:17)
[2018-06-07] MEDS: ARIPIPRAZOLE 5 MG TABLET PO SCH (08:37)
--- NOTE | 2018-06-07 08:37 | NUR ---
CIWA 14 Client presents with anxiety, agitation, tremors, flushed face, clammy skin, and difficulty concentrating. Client reports nausea, stomach cramps, sweats, headache, feeling tired, unable to sleep well, cause he sleeps mostly during the day, since we are not giving him his Nuvigil for narcolepsy, he also inquire about his lidocaine gel for chronic pain on R leg. (CN made aware of medications requested). Ativan 1mg PO administered. Encourage client to attend group therapy to learn skills to maintain sober. Call light within reach.
[2018-06-07] MEDS: FOLIC ACID 1 MG TABLET PO SCH (08:38)
[2018-06-07] MEDS: MULTIVITAMINS,THERAPEUTIC TABLET PO SCH (08:38)
[2018-06-07] MEDS: DULOXETINE 60 MG CAPSULE.DR PO SCH (08:38)
--- NOTE | 2018-06-07 12:03 | NUR ---
Nursing Note Client blood sugar 271, client does not have an order for insulin sliding scale. Client stated, "I do not want to take any more medications that what I'm taking right now." Client is on oral anti-diabetic medication: Glucotrol 5mg PO BID and Metformin 100mg BIDM PO. Educated client of the risk of health problems, eye complications, neuropathy. Client requested a nutrition counseling. CN notified.
[2018-06-07] MEDS: HYDROXYZINE PAMOATE 25 MG CAPSULE PO PRN (12:43)
[2018-06-07] MEDS: CLONIDINE HCL 0.1 MG TABLET PO PRN ×2 (12:44→20:17)
--- NOTE | 2018-06-07 12:44 | NUR ---
CIWA 14 Client presents with anxiety, agitation, m/b increase P 90, BP 160/97, tremors, flushed face, clammy skin, and difficulty concentrating. Client inquire about his lidocaine gel for chronic pain on R leg. He reports R leg pain 5/10. Encourage support according to plan of care. PRN Clonidine 0.1mg PO and Vistaril 50mg PO administered. Call light within reach.
[2018-06-07] MEDS ORDERED: LIDOCAINE/PRILOCAINE 5 GM CREAM.GM. TP PRN (13:00)
--- NOTE | 2018-06-07 13:44 | NUR ---
Reassess PRN Clonidine 0.1mg, P 70, BP 104/70 and Vistaril 50mg, client reports feeling less anxious. Call light within reach.
--- NOTE | 2018-06-07 15:30 | NUR ---
CIWA 14 Client continues to present with tremors, increased anxiety, agitation, intermittent perspiration, myalgia, nausea, malaise, fatigue, and difficulty concentrating. Schedules Ativan 1mg PO administered. Client is planning to attend group therapy. Call light within reach.
--- NOTE | 2018-06-07 16:37 | NUR ---
Nursing Note Client blood sugar 248, Glucotrol 5mg PO administered. CN notified.
--- NOTE | 2018-06-07 16:42 | NUR ---
Client was prompted to attend twice daily group therapy sessions.
[2018-06-07] MEDS: PRILOCAINE TOP PRN (17:52)
[2018-06-07] MEDS: LIDOCAINE TOP PRN (17:52)
--- NOTE | 2018-06-07 17:52 | NUR ---
PRN Lidocaine 2.5%/Prilocare 2.5% cream TOP to L ankle for pain 5/10.
[2018-06-07] MEDS: ropiniROLE 0.5 MG TABLET PO SCH (18:29)
--- NOTE | 2018-06-07 18:52 | NUR ---
Reassess PRN Lidocaine 2.5%/Prilocare 2.5%, client reports slight relief from L ankle for pain 2/10, but tolerable.
--- NOTE | 2018-06-07 19:04 | NUR ---
END OF SHIFT Endorse client to incoming nurse, client is in group therapy, a/o x 4. Client monitored closely during shift, continues on Ativan taper as ordered. During shift client presented with nausea, anxiety, agitation, stomach cramps, difficulty concentrating, avoidant gaze, flushed face and fatigue. Last Blood glucose 248, client is on anti-diabetic medication Glucotrol 5mg PO BID and Metformin 100mg BIDM PO. Last CIWA 14 @ 1600. Adequate PO fluid intake 2400mL, void x 5, stool x 3. Consumes 50-75% of meals. Call light within reach.
--- NOTE | 2018-06-07 19:04 | NUR ---
START OF SHIFT NOTE: This is report on patient, an 48 year old male, admitted for Benzodiazepines, Alcohol, and Opioid withdrawal, continues ordered Ativan taper, which tolerated well. The patient is alert and oriented x4, with stable gait, soft clear speech, anxious mood, labile affect. Last CIWA=14 at 1530. The patient presented with moderate withdrawal symptoms such as anxiety, agitation, depression, irritability, nervousness, nausea, nasal congestion, body aches, myalgia, sweating, restlessness, fatigue, and yawning. PRN Tylenol 650 mg PO administrated for generalized body aches at 0735, PRN Motrin 400 mg PO administrated for pain at 0736, PRN Vistaril 50 mg PO administrated for anxiety at 1243, PRN Clonidine 0.1 mg PO administrated for high BP at 1244, and were effective by day shift nurse report. The patient remains compliant with treatment plan, medications, and diet regime. Encouraged to attend group activities. Encouraged to intake fluids as tolerated. All needs met. Safety measures: Call light within reach, bed locked in lowest position, padded bed rails up x2. Endorsed by outgoing day shift nurse. Will continue to monitor closely.
--- NOTE | 2018-06-07 20:00 | NUR ---
CIWA ASSESSMENT CIWA=12 at 2000. The patient appears sad, worried, with irritable mood and anxious affect. Patient experienced following withdrawal symptoms such as anxiety, agitation, Irritability, nervousness, sweating, tremors, stomach cramps, restlessness, fatigue, and yawning. Ativan PO will be administrated as ordered. Encouraged to intake fluids as tolerated. All needs met. Safety measures: Call light within reach, bed locked in lowest position, padded bed rails up x2. Will continue to monitor closely.
--- NOTE | 2018-06-07 20:17 | NUR ---
PRN CLONIDINE 0.1 MG PO ADMINISTRATION PRN Clonidine 0.1 mg PO administrated for BP= 156/95 at 2017, as ordered. The patient tolerated well. Encouraged to intake fluids as tolerated. Safe and calm environment provided. Encouraged to intake fluids as tolerated. All needs met. Safety measures: Call light within reach, bed locked in lowest position, padded bed rails up x2. Will continue to monitor closely.
--- NOTE | 2018-06-07 20:21 | NUR ---
ACCU-CHEK Patient's blood sugar 225 this pm via accucheck. Patient asymptomatic. Patient refused insulin. MD aware. Safe and calm environment provided. Encouraged to intake fluids as tolerated. All needs met. Safety measures: Call light within reach, bed locked in lowest position, padded bed rails up x2. Will continue to monitor closely.
--- NOTE | 2018-06-07 21:17 | NUR ---
PRN CLONIDINE 0.1 MG PO RE-ASSESSMENT UH=587/66, HR=70. PRN Clonidine 0.1 mg PO administrated for BP= 156/95 at 2017 was effective. Encouraged to intake fluids as tolerated. Safe and calm environment provided. Encouraged to intake fluids as tolerated. All needs met. Safety measures: Call light within reach, bed locked in lowest position, padded bed rails up x2. Will continue to monitor closely.
[2018-06-08] VITALS: BP 140/79
--- NOTE | 2018-06-08 | NUR ---
CIWA DEFERRED CIWA deferred r/t patient sleeping. Will be to assess while patient is awake. Safe and calm environment provided. All needs met. Safety measures: Call light within reach, bed locked in lowest position, padded bed rails up x2. Will continue to monitor closely.
[2018-06-08 04:00] VITALS: BP 135/82
--- NOTE | 2018-06-08 04:00 | NUR ---
CIWA ASSESSMENT CIWA=11 at 0400. The patient appears worried, with anxious mood and flat affect. Patient presented with anxiety, agitation, Irritability, nervousness, sweating, tremors, restlessness, fatigue, and yawning. Encouraged to intake fluids as tolerated. Safe and calm environment provided. All needs met. Safety measures: Call light within reach, bed locked in lowest position, padded bed rails up x2. Will continue to monitor closely.
--- NOTE | 2018-06-08 07:30 | NUR ---
END OF SHIFT NOTE: Endorsed patient, an 48 year old male, continues ordered Ativan taper for Benzodiazepines, Alcohol, and Opioid withdrawal, which tolerated well. The patient is alert and oriented x4, with stable gait, soft clear speech, anxious mood, flat affect. Last CIWA=12 at 1999, CIWA=11 at 0400: Patient presented with anxiety, agitation, Irritability, nervousness, sweating, tremors, restlessness, fatigue, and yawning. PRN Clonidine 0.1 mg PO administrated for BP= 156/95 at 2017 was effective. Patient's blood sugar 225 this pm via accucheck. Patient asymptomatic. Patient refused insulin. MD aware. The patient remains compliant with treatment plan, medications, and diet regime Patient slept for 7 hours, intake 855 ml, output: voided x2. Safe and calm environment provided. Encouraged to intake fluids as tolerated. All needs met. Safety measures: Call light within reach, bed locked in lowest position, padded bed rails up x2. Endorsed to day shift nurse.
[2018-06-08] MEDS: METFORMIN HCL 500 MG TABLET PO SCH ×2 (07:45→17:26)
[2018-06-08] MEDS: glipiZIDE 5 MG TABLET PO SCH ×2 (07:45→17:27)
[2018-06-08] MEDS: BLOOD SUGAR DIAGNOSTIC 1 EACH STRIP VI SCH ×4 (07:48→20:57)
--- NOTE | 2018-06-08 07:50 | NUR ---
START OF SHIFT Pt is a 47 yr old male, AA&Ox4. Pt was admitted on 06/03/18 for ETOH/Benzo/Opiate withdrawal and is on 5 day Ativan taper as ordered. Received report from novelty dipper nurse. Pt received Clonidine 0.1mg PO PRN during the night for in crease BP. Last CIWA score was 11. Pt slept for 7 hrs. Pt is currently c/o anxiety, muscle aching, chills and sweats. Skin is intact, warm and moist to touch. Pt is on Accu check ACHS. Last BS was 225. Pt's BS this morning is 128 at 0747. Pt was encouraged increase fluid intake for hydration. Safety precautions observed. call light is within reach. Will continue to monitor.
[2018-06-08 08:00] VITALS: BP 141/78
--- NOTE | 2018-06-08 08:00 | NUR ---
CIWA score 9 Pt c/o anxiety, muscle aching, pins and needles on BLE, sweats and chills. Fine tremors are seen on BUE.. CIWA score was 9. Will f/u with Ativan 1mg PO as scheduled at 0900. Encouraged increase fluid intake. will continue to monitor.
[2018-06-08] MEDS: TRIAMTERENE HCTZ PO SCH (09:24)
[2018-06-08] MEDS: TRELEGY ELLIPTA INH SCH (09:24)
[2018-06-08] MEDS: LIDOCAINE TOP PRN (09:24)
[2018-06-08] MEDS: PRILOCAINE TOP PRN (09:24)
[2018-06-08] MEDS: LISINOPRIL 40 MG PO SCH (09:24)
--- NOTE | 2018-06-08 09:24 | NUR ---
PRN GIVEN Pt c/o right low leg pain 5/10. Lidocaine 2.5% topical cream was applied on right lower leg. Medication tonia well. Will continue to monitor.
[2018-06-08] MEDS: MULTIVITAMINS,THERAPEUTIC TABLET PO SCH (09:25)
[2018-06-08] MEDS: LORAZEPAM 1 MG TABLET PO SCH ×2 (09:25→20:57)
[2018-06-08] MEDS: CARVEDILOL 12.5 MG TABLET PO SCH ×2 (09:25→17:27)
[2018-06-08] MEDS: DULOXETINE 60 MG CAPSULE.DR PO SCH (09:25)
[2018-06-08] MEDS: THIAMINE HCL 100 MG TABLET PO SCH (09:25)
[2018-06-08] MEDS: AMLODIPINE 10 MG TABLET PO SCH (09:25)
[2018-06-08] MEDS: FOLIC ACID 1 MG TABLET PO SCH (09:26)
[2018-06-08] MEDS: OXCARBAZEPINE 300 MG TABLET PO SCH ×2 (09:26→17:27)
[2018-06-08] MEDS: ARIPIPRAZOLE 5 MG TABLET PO SCH (09:27)
[2018-06-08 12:00] VITALS: BP 149/92
--- NOTE | 2018-06-08 12:00 | NUR ---
CIWA score 5 Pt is c/o anxiety, agitation, sweats and chills. CIWA score is 5. Pt has been attending group therapy to cope with anxiety level and has been observed going to smoke multiple times. Encouraged increase fluid intake. Will continue to monitor.
--- NOTE | 2018-06-08 13:28 | NUR ---
Therapist prompted client to attend twice daily group therapy sessions.
[2018-06-08 16:00] VITALS: BP 135/87
[2018-06-08] MEDS: ropiniROLE 0.5 MG TABLET PO SCH (17:27)
--- NOTE | 2018-06-08 18:48 | NUR ---
END OF SHIFT Pt is a 47 yr old male, AA&OX4. Pt was admitted on 06/03/18 for ETOH/Benzo/Opiate withdrawal and is on 5 day Ativan taper as ordered. Pt has been cooperative with medication regimen and plan of care. Pt has been observed attending group therapy during the day. Pt was c/o anxiety, sweats, chills, and muscle aching on RLE. Pt was also c/o weak gait and requested for a cane to assist with ambulation. MD was made aware with new order to provide cane to assist with ambulation. Pt received Lidocaine 2.5% topical cream PRN for right lower leg pain. Pt is also on Accu-check ACHS, last BS was 226 at 1725. Last CIWA score was 6 at 1600. Pt was encouraged increase fluid intake for hydration. Safety precautions observed. Call light is within reach. Endorsed to shift boss nurse to continue with care.
--- NOTE | 2018-06-08 18:50 | NUR ---
START OF SHIFT NOTE: This is report on patient, an 48 year old male, admitted for Alcohol withdrawal under medical supervision, continues 5 day Ativan taper, today is last day . Withdrawal symptoms will be closely monitoring. Patient is alert and oriented x4, cooperative, verbally appropriate, with soft clear speech, and steady gate. Mood anxious and flat affect. Patient appears worried. Encouraged feeling expressing, reassurance provided. The patient noted disheveled, unshaven, unkempt, with uncombed hair. Educated that hygiene is a basic need, and is more important than ever to maintain skin integrity and promote infection control. Patient verbalized understanding. Patient remains compliant with treatment, medications, and diet regimes. Last CIWA=6 at 1600. Throughout the day shift patient c/o anxiety, agitation ,depression, nervousness, flashed face, clammy skin, sweating, body aches, fine tremors, restlessness, and fatigue. Patient to attended group activities, and socializes with peer. Encouraged to fluids intake as tolerated. Safe and calm environment provided. All needs met. Safety measure: call light within reach, bed s locked in lowest position, padded side rails up x 2. Will continue to monitor closely.
[2018-06-08 20:00] VITALS: BP 129/77
--- NOTE | 2018-06-08 20:00 | NUR ---
CIWA ASSESSMENT CIWA=9 at 1999. The patient appears sad, worried, with depressive mood and anxious affect. Patient c/o anxiety, agitation, irritability, nervousness, face flashed, clammy skin, sweating, restlessness, and fatigue. Scheduled Ativan 1 mg PO will be administrated, as ordered. Encouraged to intake fluids as tolerated. All needs met. Safety measures: Call light within reach, bed locked in lowest position, padded bed rails up x2. Will continue to monitor closely.
[2018-06-08] MEDS: TRAZODONE 100 MG TABLET PO PRN (20:57)
--- NOTE | 2018-06-08 20:57 | NUR ---
PRN TRAZODONE 100 MG PO ADMINISTRATION The patient c/o insomnia. PRN Trazodone 100 mg PO administrated for insomnia at 2056, as ordered. The patient tolerated well. Encouraged to intake fluids as tolerated. Safe and calm environment provided. Encouraged to intake fluids as tolerated. All needs met. Safety measures: Call light within reach, bed locked in lowest position, padded bed rails up x2. Will continue to monitor closely.
--- NOTE | 2018-06-08 21:57 | NUR ---
PRN TRAZODONE PO RE-ASSESSMENT The patient sleeping. Respirations are even and unlabored. RR:16. PRN Trazodone 100 mg PO administrated for insomnia at 2056 was effective. All needs met. Safety measures: Call light within reach, bed locked in lowest position, padded bed rails up x2. Endorsed by outgoing day shift nurse. Will continue to monitor closely.
[2018-06-09] VITALS: BP 133/66
--- NOTE | 2018-06-09 | NUR ---
CIWA ASSESSMENT CIWA=9 at 0000. The patient appears worried with anxious mood and flat affect. he patient presented with following withdrawal symptoms such as anxiety, agitation, depression, irritability, nervousness, sweating, fine tremors, flashed face, restlessness, fatigue, and yawning. Encouraged to intake fluids as tolerated. Safe and calm environment provided. Encouraged to intake fluids as tolerated. All needs met. Safety measures: Call light within reach, bed locked in lowest position, padded bed rails up x2. Will continue to monitor closely.
[2018-06-09 04:00] VITALS: BP 139/75
--- NOTE | 2018-06-09 04:00 | NUR ---
CIWA ASSESSMENT CIWA=11 at 0400. The patient noted sad and worried. Mood anxious and flat affect. The patient presented with anxiety, agitation, depression, irritability, nervousness, sweating, tremors that can be felt not observe, flashed face, restlessness, fatigue, and yawning. The patient refused PRN Medications now. Encouraged to intake fluids as tolerated. Safe and calm environment provided. Encouraged to intake fluids as tolerated. All needs met. Safety measures: Call light within reach, bed locked in lowest position, padded bed rails up x2. Will continue to monitor closely.
--- NOTE | 2018-06-09 06:58 | NUR ---
END OF SHIFT NOTE: Endorsed patient, an 48 year old male, continues ordered Ativan taper for Benzodiazepines, Alcohol, and Opioid withdrawal, which tolerated well. The patient is alert and oriented x4, with stable gait, soft clear speech, anxious mood, flat affect. CIWA=9 at 2000, CIWA=9 at 0000. The most recent CIWA=11 at 0400: The patient presented with anxiety, agitation, depression, irritability, nervousness, sweating, tremors that can be felt not observe, flashed face, restlessness, fatigue, and yawning. The patient remains compliant with treatment plan, medications, and diet regime Patient slept for 7 hours, intake 1,047ml, output: voided x3. Safe and calm environment provided. Encouraged to intake fluids as tolerated. All needs met. Safety measures: Call light within reach, bed locked in lowest position, padded bed rails up x2. Endorsed to day shift nurse.
[2018-06-09] MEDS: glipiZIDE 5 MG TABLET PO SCH ×2 (07:56→17:35)
[2018-06-09] MEDS: METFORMIN HCL 500 MG TABLET PO SCH ×2 (07:56→17:36)
[2018-06-09] MEDS: BLOOD SUGAR DIAGNOSTIC 1 EACH STRIP VI SCH ×4 (07:58→20:57)
--- NOTE | 2018-06-09 07:59 | NUR ---
START OF SHIFT Pt is a 47 yr old male, AA&Ox4. Pt was admitted on 06/03/18 for ETOH/Benzo/Opiate withdrawal and completed a 5 day Ativan taper as ordered. Received report from security shift manager nurse. No PRN's were given during the night. Last CIWA score was 11. Pt slept for 7 hrs. Pt is currently c/o anxiety, right lower leg pain, chills and sweats. Skin is intact, warm and moist to touch. Pt states of feeling better today than yesterday. Pt is on Accu check ACHS. Last BS was 152. Pt's BS this morning is 165 at 0758. Pt was encouraged increase fluid intake for hydration. Safety precautions observed. call light is within reach. Will continue to monitor. Addendum: 06/09/18 at 1053 by AME VILLANUEVA LVN CIWA score was 8
[2018-06-09 08:00] VITALS: BP 133/63
[2018-06-09] MEDS: TRELEGY ELLIPTA INH SCH (09:17)
[2018-06-09] MEDS: LIDOCAINE TOP PRN ×2 (09:17→22:41)
[2018-06-09] MEDS: PRILOCAINE TOP PRN ×2 (09:17→22:41)
[2018-06-09] MEDS: LISINOPRIL 40 MG PO SCH (09:18)
[2018-06-09] MEDS: ARIPIPRAZOLE 5 MG TABLET PO SCH (09:18)
[2018-06-09] MEDS: DULOXETINE 60 MG CAPSULE.DR PO SCH (09:18)
[2018-06-09] MEDS: THIAMINE HCL 100 MG TABLET PO SCH (09:18)
[2018-06-09] MEDS: CARVEDILOL 12.5 MG TABLET PO SCH ×2 (09:18→17:36)
[2018-06-09] MEDS: OXCARBAZEPINE 300 MG TABLET PO SCH ×2 (09:18→17:36)
[2018-06-09] MEDS: MULTIVITAMINS,THERAPEUTIC TABLET PO SCH (09:18)
[2018-06-09] MEDS: TRIAMTERENE HCTZ PO SCH (09:18)
[2018-06-09] MEDS: AMLODIPINE 10 MG TABLET PO SCH (09:18)
[2018-06-09] MEDS: FOLIC ACID 1 MG TABLET PO SCH (09:18)
--- NOTE | 2018-06-09 10:19 | NUR ---
Therapist prompted client to attend group therapy.
[2018-06-09 12:00] VITALS: BP 134/84
--- NOTE | 2018-06-09 12:00 | NUR ---
CIWA ASSESSMENT Pt is c/o increase anxiety and agitation due to being discharged tomorrow on 06/09/18. Pt states he feels anxious of the "unknown" Pt is observed with sweats. Pt was reassured case mgt will work with him on his discharged plan. CIWA score was 8. Will continue to monitor.
[2018-06-09 16:00] VITALS: BP 120/77
[2018-06-09] MEDS: ropiniROLE 0.5 MG TABLET PO SCH (17:35)
--- NOTE | 2018-06-09 18:53 | NUR ---
END OF SHIFT Pt is a 47 yr old male, AA&OX4. Pt was admitted on 06/03/18 for ETOH/Benzo/Opiate withdrawal and and completed a 5 day Ativan taper as ordered. Pt has been cooperative with medication regimen and plan of care. Pt has been observed attending group therapy during the day. Pt was c/o increase anxiety, agitation due to discharge. Pt states of feeling anxious of the unknown. Pt was observed fidgety and body sweats. Pt was encouraged increase fluid intake for hydration. Pt is to be discharged tomorrow on 06/10/18 to [facility]. Pt is also on Accu-check ACHS, last BS was 173 at 1700. Last CIWA score was 6 at 1600. Safety precautions observed. Call light is within reach. Endorsed to welder 2nd shift nurse to continue with care.
--- NOTE | 2018-06-09 19:30 | NUR ---
Start of Shift Note Received 48 y/o male px, admitted for medically supervised withdrawal from ETOH, benzo and opiate. Px is also using cannabis. He completed 5 day Ativan taper. Px will be D/C tomorrow, 06/10/2018. Last reported CIWA 6 by AM shift nurse. During the rounds at 1930, px is awake sitting on the edge of the bed. Px appears anxious. He is unshaven. Px stated that he is very anxious tonight. Anxiety is 10/10. He has also H/A of 4/10. Mild tremors noted on bilateral hands. Bed on lowest position, side rails up 2x and call light within reach. Well continue to monitor.
[2018-06-09] MEDS: CLONIDINE HCL 0.1 MG TABLET PO PRN (19:46)
[2018-06-09] MEDS: ACETAMINOPHEN 325 MG TABLET PO PRN (19:46)
--- NOTE | 2018-06-09 19:46 | NUR ---
PRN Tylenol and Clonidine Px received Tylenol 650 mg PO for H/A of 10 and Clonidine 0.1 mg PO for anxiety of 07/22. will continue to monitor
[2018-06-09 20:00] VITALS: BP 117/74
--- NOTE | 2018-06-09 20:00 | NUR ---
CIWA 17 During assessment, px is awake sitting on the edge of the bed. Px appears anxious. Px stated that he is very anxious tonight. Anxiety is 10/10. He has also H/A of 4/10. Mild tremors noted on bilateral hands. will continue to monitor
[2018-06-09] MEDS: LOPERAMIDE HCL 2 MG CAPSULE PO PRN (20:27)
--- NOTE | 2018-06-09 20:27 | NUR ---
PRN Imodium Px had BM accident in the patio. Px stated that he felt it but it was fast that he can't control it. He had 1x loose stool. Imodium 2 mg,1 cap given PO. will continue to monitor.
--- NOTE | 2018-06-09 20:50 | NUR ---
Reassessment of H/A and anxiety Px stated that his H/A is gone and his anxiety is 7/10. will continue to monitor.
[2018-06-09] MEDS: HYDROXYZINE PAMOATE 25 MG CAPSULE PO PRN (21:00)
--- NOTE | 2018-06-09 21:00 | NUR ---
BG Px BG= is 193 mg/dl.
--- NOTE | 2018-06-09 21:00 | NUR ---
PRN Vistaril Px stated that his anxiety is better compared a while ago. It's 04/21. Px received Vistaril 50 mg PO for anxiety. will continue to monitor.
[2018-06-09] MEDS ORDERED: GLIP5TAB13 PO (21:37)
[2018-06-09] MEDS ORDERED: TRAZ-214 PO (21:37)
[2018-06-09] MEDS ORDERED: IBUP-1953 PO (21:37)
[2018-06-09] MEDS ORDERED: METH-406 PO (21:37)
[2018-06-09] MEDS ORDERED: HYDR-3895 PO (21:37)
--- NOTE | 2018-06-09 22:00 | NUR ---
Reassessment of Anxiety Px stated that his anxiety is way better. It is now on 12/20.
[2018-06-09] MEDS: TRAZODONE 100 MG TABLET PO PRN (22:41)
--- NOTE | 2018-06-09 22:41 | NUR ---
PRN Robaxin, Trazodone and Lidocaine gel Px received Robaxin 750 mg PO for upper back muscular pain of 5/10. Lidocaine gel applied on his right leg for pain of 6/10. Trazodone 100 mg PO was also given for insomnia. will continue to monitor
--- NOTE | 2018-06-09 23:45 | NUR ---
Reassessment of pain and insomnia Px is already asleep at this moment. Reassessment of pain is deferred. We'll continue to monitor
[2018-06-10] VITALS: BP 110/69
--- NOTE | 2018-06-10 | NUR ---
CIWA deferred CIWA deferred due to the px is asleep. will continue to monitor
[2018-06-10 04:00] VITALS: BP 115/77
--- NOTE | 2018-06-10 04:00 | NUR ---
CIWA 9 Px woke up around 0345. Px appears anxious. Px stated that his anxiety is better now compared to yesterday. He has no more H/A and body pains. will continue to monitor.
--- NOTE | 2018-06-10 07:05 | NUR ---
End of Shift Note Px is to be D/C today, 06/10/2018. During the shift at 1946, odin received Tylenol 650 mg PO for H/A of 4/10 and Clonidine 0.1 mg PO for increased anxiety. Tylenol was effective. At 2026, he received Imodium 2 mg PO for 1x loose stool. It was effective. At 2099, he received Vistaril 50 mg PO for anxiety. It was effective. At 2240, odin received Robaxin 750 mg PO for upper back pain and Lidocaine gel for pain on his right leg. He also received Trazodone 100 mg PO for insomnia. They were effective. Oral intake of 1,500 ml, voided 3x, BM 1x. Odin slept for 5 hours. Last CIWA 9. At 0630, odin is awake inside his room. Bed on lowest position, side rails up 2x and call light within reach. Well continue to monitor. Px endorsed to AM shift nurse.
--- NOTE | 2018-06-10 07:40 | NUR ---
START OF SHIFT Pt is a 47 yr old male, AA&Ox4. Pt was admitted on 06/03/18 for ETOH/Benzo/Opiate withdrawal and completed a 5 day Ativan taper as ordered. Received report from night auditor nurse. Pt received multiple PRN during the night including Imodium PRN, Tylenol PRN, Clonidine, Vistaril PRN, Robaxin PRN, Trazodone PRN and Lidocaine cream PRN during the night. Last CIWA score was 9. Pt slept for 5 hrs. Pt is to be discharged today to [facility]. Pt is stating of feeling anxious in regards to the discharged and is noted fidgety. Skin is warm and moist to touch. Safety precautions observed. Call light is within reach. Will continue to monitor.
[2018-06-10] MEDS: glipiZIDE 5 MG TABLET PO SCH (07:45)
[2018-06-10] MEDS: METFORMIN HCL 500 MG TABLET PO SCH (07:45)
[2018-06-10] MEDS: BLOOD SUGAR DIAGNOSTIC 1 EACH STRIP VI SCH (07:46)
[2018-06-10 08:00] VITALS: BP 133/87
[2018-06-10] MEDS: FOLIC ACID 1 MG TABLET PO SCH (08:43)
[2018-06-10] MEDS: DULOXETINE 60 MG CAPSULE.DR PO SCH (08:43)
[2018-06-10] MEDS: PRILOCAINE TOP PRN (08:43)
[2018-06-10] MEDS: OXCARBAZEPINE 300 MG TABLET PO SCH (08:43)
[2018-06-10] MEDS: THIAMINE HCL 100 MG TABLET PO SCH (08:43)
[2018-06-10] MEDS: LIDOCAINE TOP PRN (08:43)
[2018-06-10] MEDS: ARIPIPRAZOLE 5 MG TABLET PO SCH (08:43)
[2018-06-10] MEDS: TRELEGY ELLIPTA INH SCH (08:43)
[2018-06-10] MEDS: CARVEDILOL 12.5 MG TABLET PO SCH (08:43)
[2018-06-10 08:44] VITALS: BP 133/87
[2018-06-10] MEDS: TRIAMTERENE HCTZ PO SCH (08:44)
[2018-06-10] MEDS: MULTIVITAMINS,THERAPEUTIC TABLET PO SCH (08:44)
[2018-06-10] MEDS: LOPERAMIDE HCL 2 MG CAPSULE PO PRN (08:44)
[2018-06-10] MEDS: AMLODIPINE 10 MG TABLET PO SCH (08:44)
[2018-06-10] MEDS: LISINOPRIL 40 MG PO SCH (08:44)
--- NOTE | 2018-06-10 09:40 | NUR ---
DISCHARGE NOTE Pt is a 47 yr old male, AA&Ox4. Pt was admitted on 06/03/18 for ETOH/Benzo/Opiate withdrawal and completed a 5 day Ativan taper as ordered. Pt has been cooperative with medication regimen and plan of care. Pt was c/o anxiety prior to discharge but is able to cope with anxiety level. No HI/SI. Pt received Imodium 2mg PRN for prophylaxis measures per pt's request and Lidoderm cream PRN for right lower leg pain. Medication was effective. Pt was educated on discharged summary and prescriptions. Pt was able to verbalize understanding. Pt left the unit at 0927 in stable condition to [facility]. Pt left with all belongings, valuables and home medications.
== END 2018-06-10 09:27 | DRG 895 ==
LOC: SRC 20:20
PROVIDERS: ADMIT Family Medicine Addiction Medicine; ATTEND Family Medicine Addiction Medicine
PROC: HZ2ZZZZ Detoxification Services for Substance Abuse Treatment (ICD-10-PCS; principal; 2018-06-03)
PROC: HZ31ZZZ Individual Counseling for Substance Abuse Treatment, Behavioral (ICD-10-PCS; 2018-06-05)
PROC: HZ41ZZZ Group Counseling for Substance Abuse Treatment, Behavioral (ICD-10-PCS; 2018-06-06)
DX: F10.230 Alcohol dependence with withdrawal, uncomplicated (principal); I42.9 Cardiomyopathy, unspecified; F33.2 Major depressive disorder, recurrent severe without psychotic features; F11.23 Opioid dependence with withdrawal; F13.230 Sedative, hypnotic or anxiolytic dependence with withdrawal, uncomplicated; Y90.0 Blood alcohol level of less than 20 mg/100 ml; Z98.1 Arthrodesis status; F17.210 Nicotine dependence, cigarettes, uncomplicated; G47.419 Narcolepsy without cataplexy; F41.9 Anxiety disorder, unspecified; D75.1 Secondary polycythemia; G89.29 Other chronic pain; M54.5 Low back pain; I10 Essential (primary) hypertension; J44.9 Chronic obstructive pulmonary disease, unspecified; G47.00 Insomnia, unspecified; E66.9 Obesity, unspecified; E11.65 Type 2 diabetes mellitus with hyperglycemia; F12.20 Cannabis dependence, uncomplicated
CPT/HCPCS: 36415; 70030-TC; 80307; 80346; 80349; 83690; 83735; 84443; 85025; 86580; 86592; 86705; 86803; 87340; 87806; A4663; G0480; J3411; J3535; Q0163